=== PATIENT | male | born 1985 | race Caucasian/White ===

== ENCOUNTER 2017-05-04 19:47 | Emergency (ER) | payer OTHER ==
[~2017-05-04] VITALS: Ht 172.7 cm; Wt 69.0 kg
[2017-05-05] MEDS ORDERED: LIDOCAINE HCL/EPINEPHRINE 1%-EPI 1:100,000 30 ML VIAL INFIL ONE (02:30)
[2017-05-05] MEDS ORDERED: TETANUS, DIPHTHERIA, PERTUSSIS VAC/PF 0.5ML (>7YR OLD) IM ONE (02:30)
[2017-05-05] MEDS ORDERED: LIDOCAINE HCL 1%/EPI 1:200,000 30 ML VIAL MC NR (03:00)
[2017-05-05] MEDS ORDERED: CEFAZOLIN SODIUM 1000MG/VIAL IM ONE (04:00)
[2017-05-05 05:35] VITALS: BP 115/73
== END 2017-05-05 05:35 | disposition home or self-care (01) ==
LOC: ER 19:47
DX: S51.811A Laceration without foreign body of right forearm, initial encounter (principal); W27.0XXA Contact with workbench tool, initial encounter; Y93.89 Activity, other specified; Y92.89 Other specified places as the place of occurrence of the external cause; Y99.8 Other external cause status
CPT/HCPCS: 12002; 73090; 90471; 90715; 96372; 99284; J0690; X7700; Z7610

== ENCOUNTER 2017-05-07 13:53 | Emergency (ER) | payer OTHER ==
[~2017-05-07] VITALS: Ht 170.2 cm; Wt 69.0 kg
[2017-05-07 13:56] VITALS: BP 124/66
== END 2017-05-07 17:18 | disposition left against medical advice (07) ==
LOC: ER 14:09
DX: Z53.21 Procedure and treatment not carried out due to patient leaving prior to being seen by health care provider (principal)